=== PATIENT | female | born 1985 | race Two or more races ===

== ENCOUNTER 2017-03-25 11:03 | Emergency (ER) | payer OTHER ==
[~2017-03-25] VITALS: Ht 160 cm; Wt 104.8 kg
--- NOTE | 2017-03-25 11:15 | NUR ---
[id number], [id number] FROM [facility]: BACK PAIN S/P FELL OFF 3 STAIRS. RR IS EVEN AND UNLABORED WITH NAD NOTED. SKIN IS WARM AND DRY. DR CASTILLO AT BS FOR EVAL.
[2017-03-25] MEDS ORDERED: ONDANSETRON HCL/PF 4 MG/2 ML VIAL ONE (11:19)
[2017-03-25] MEDS ORDERED: MORPHINE SULFATE INJ 4 MG/ML DISP.SYRIN ONE (11:20)
[2017-03-25] MEDS ORDERED: MORPHINE SULFATE INJ 2 MG/ML DISP.SYRIN IM ONE (11:30)
[2017-03-25] MEDS ORDERED: ONDANSETRON HCL/PF 4 MG/2 ML VIAL IM ONE (11:30)
--- NOTE | 2017-03-25 12:51 | NUR ---
Zeke yoder in [facility] - 03/25/17 at 1427 by KIP ART AT BS
[2017-03-25] MEDS ORDERED: HYDROCODONE/APAP 5/325MG 1 EACH TABLET ONE (13:13)
[2017-03-25] MEDS ORDERED: HYDROCODONE/APAP 5/325MG 1 EACH TABLET PO ONE (13:30)
[2017-03-25 14:26] VITALS: BP 138/95
--- NOTE | 2017-03-25 14:27 | NUR ---
Patient discharged to home in stable condition. Written and verbal after care instructions given. Patient verbalizes understanding of instruction. Prescription given.
== END 2017-03-25 14:29 | disposition home or self-care (01) ==
LOC: ER 11:05
DX: S30.0XXA Contusion of lower back and pelvis, initial encounter (principal); W10.9XXA Fall (on) (from) unspecified stairs and steps, initial encounter; Y93.89 Activity, other specified; Y92.89 Other specified places as the place of occurrence of the external cause; Y99.8 Other external cause status
CPT/HCPCS: 36415; 72131; 73502; 84703; 96372 ×2; 99285; A4606; J2270; J2405; Z7610